=== PATIENT | female | born 1990 | race African-American/Black ===

== ENCOUNTER 2018-11-19 18:54 | Emergency (ER) | payer OTHER ==
[~2018-11-19] VITALS: Ht 157.5 cm; Wt 90.7 kg
[2018-11-19 19:03] VITALS: BP 157/85
[2018-11-19] MEDS ORDERED: IBUPROFEN 800800 M1 PO (19:50)
[2018-11-19] MEDS ORDERED: TYLENOL325 MG PO (19:50)
[2018-11-19] MEDS ORDERED: NORFLEX100 MG PO (19:54)
[2018-11-19] MEDS ORDERED: PREDNISONE 20 M20 MG PO (19:54)
[2018-11-19] MEDS ORDERED: TRAMADOL 50 MG50 MG PO (19:54)
[2018-11-19] MEDS ORDERED: MOBIC7.5 MG PO (20:18)
== END 2018-11-19 20:20 | disposition home or self-care (01) ==
LOC: ER 18:54
DX: M54.30 Sciatica, unspecified side (principal); M54.17 Radiculopathy, lumbosacral region

== ENCOUNTER 2019-01-26 19:26 | Emergency (ER) | payer OTHER ==
[~2019-01-26] VITALS: Ht 157.5 cm; Wt 93.0 kg
[~2019-01-26 19:26] MED LIST: IBUPROFEN 800800 M1 PO; MOBIC7.5 MG PO; NORFLEX100 MG PO; PREDNISONE 20 M20 MG PO; TRAMADOL 50 MG50 MG PO; TYLENOL325 MG PO
[2019-01-26] MEDS ORDERED: GABAPENTIN 100100 MG PO (21:51)
[2019-01-26 21:59] VITALS: BP 132/85
== END 2019-01-26 22:05 | disposition home or self-care (01) ==
LOC: ER 19:26
DX: M54.31 Sciatica, right side (principal); Z88.6 Allergy status to analgesic agent

== ENCOUNTER 2020-02-23 04:07 | Emergency (ER) | payer OTHER ==
[~2020-02-23] VITALS: Ht 157.5 cm; Wt 93.0 kg
[~2020-02-23 04:07] MED LIST changes: +GABAPENTIN 100100 MG PO
[2020-02-23] MEDS ORDERED: CYCLOBENZAPRINE5 MG PO (05:46)
[2020-02-23 05:54] VITALS: BP 147/75
== END 2020-02-23 05:56 | disposition home or self-care (01) ==
LOC: ER 04:07
DX: R07.9 Chest pain, unspecified (principal); M54.2 Cervicalgia; Z88.5 Allergy status to narcotic agent; V47.5XXA Car driver injured in collision with fixed or stationary object in traffic accident, initial encounter; Y93.89 Activity, other specified; Y92.89 Other specified places as the place of occurrence of the external cause; Y99.8 Other external cause status